=== PATIENT | male | born 1935 | race Caucasian/White ===

== ENCOUNTER 2022-03-28 19:45 | Inpatient (IN) ==
[2022-03-28] MEDS ORDERED: SODIUM CHLORIDE 0.9% 1,000 ML IV STA ×2 (21:04→23:11)
[2022-03-28 21:05] LABS: Basophils % 0.1 % (0.0-0.8); Hematocrit 41.5 VOL% (42.0-52.0); Hemoglobin 13.4 GM/DL (14.0-18.0); Immature Granulocytes % 0.3 %; Immature Granulocytes Absolute 0.05 #; Lymphocytes # 0.3 10*3/uL (1.4-4.0); Lymphocytes % 2.2 % (21.2-54.2); Mean Corpuscular HGB Conc 32.3 GM/DL (32-36); Mean Corpuscular Volume 94.7 FL (87-102); Mean Platelet Volume 10.1 FL (9.6-12.0); Monocytes # 1.1 10*3/uL (0.11-0.8); Monocytes % 7.3 % (1.7-12.7); Neutrophils % 90.1 % (38.7-73.9); Platelet Count 189 T/CUMM (130-400); Red Blood Count 4.38 MC/CUMM (3.8-5.5); Red Cell Distribution Width 14.6 % (9.3-17.3); White Blood Count 15.2 T/CUMM (4-12)
[2022-03-28 21:29] LABS: Alanine Aminotransferase 15 U/L (16-61); Albumin 3.3 G/DL (3.4-5.0); Alkaline Phosphatase 81 U/L (45-117); Aspartate Amino Transferase 33 U/L (0-37); Blood Urea Nitrogen 39 MG/DL (7-18); Carbon Dioxide 17 MMOL/L (21-32); Chloride 111 MMOL/L (98-107); Glucose 109 MG/DL (74-106); Osmolality,Calculated 288.4 MOS/KG (273-304); Potassium 5.1 MMOL/L (3.5-5.1); Sodium 140 MMOL/L (136-145); Total Protein 5.8 G/DL (6.4-8.2)
[2022-03-28 21:33] LABS: Band Neutrophils 7 % (0-10); Lymphocytes 6 % (20-55); Total Cells Counted 100
[2022-03-28 21:34] LABS: Platelet Estimate Adequate
[2022-03-28] MEDS ORDERED: LORazepam 2 MG/1 ML VIAL IV STA (21:38)
[2022-03-28] MEDS ORDERED: PIPERACILLIN/TAZOBACTAM 3,375 MG in SODIUM CHLORIDE 0.9% 100 ML IV STA (23:21)
[2022-03-29] MEDS ORDERED: flumazeniL 0.5 MG/5 ML VIAL IV ONE ×3 (00:21→01:00)
[2022-03-29] MEDS ORDERED: SODIUM BICARBONATE 50 MEQ/50 ML VIAL IV ONE (00:58)
[2022-03-29] MEDS ORDERED: SODIUM BICARBONATE 50 MEQ/50 ML VIAL IV STA (00:58)
[2022-03-29] MEDS ORDERED: LACTATED RINGERS 1,000 ML IV SCH (01:00)
[2022-03-29] MEDS ORDERED: NOREPINEPHRINE 4 MG/4 ML VIAL IV ONE (01:11)
[2022-03-29] MEDS ORDERED: NOREPINEPHRINE DRIP 8 MG/250 ML PREMIX IV PRN (01:12)
[2022-03-29] MEDS: NOREPINEPHRINE DRIP 8 MG/250 ML PREMIX IV PRN ×2 (01:29→10:23)
[2022-03-29] MEDS ORDERED: ALBUTEROL 2.5 MG/3 ML NEB RESP TX PRN (02:01)
[2022-03-29] MEDS ORDERED: ONDANSETRON 4 MG/2 ML VIAL IV PRN (02:01)
[2022-03-29] MEDS ORDERED: LACTATED RINGERS 1,000 ML IV ONE (02:41)
[2022-03-29] MEDS ORDERED: CEFEPIME 1,000 MG in SODIUM CHLORIDE 0.9% 100 ML IV SCH ×2 (03:00→16:00)
[2022-03-29] MEDS ORDERED: VANCOMYCIN INJ 1,000 MG in SODIUM CHLORIDE 0.9% 250 ML IV SCH (03:00)
[2022-03-29 03:20] VITALS: BP 91/55
[2022-03-29 04:04] LABS: Arterial Base Excess iSTAT -12 MMOL/L (-2.5-2.5); Arterial Bicarbonate iSTAT 14.7 MMOL/L (20-26); Arterial O2 Saturation iSTAT 72 % (95-100); Arterial PCO2 iSTAT 35 MM HG (35-48); Arterial PO2 iSTAT 44 MM HG (80-95); Arterial Total CO2 iSTAT 16 MMO/L (23-27); Arterial pH iSTAT 7.237 (7.35-7.45)
[2022-03-29 04:31] LABS: INR 5.4; Partial Thromboplastin Time 48.7 SECS (23.7-32.9)
[2022-03-29 04:34] LABS: ABG HCO3 13.7 MMOL/L (20-26); ABG PCO2 39.5 MM HG (35-48)
[2022-03-29 04:35] LABS: ABG PH 7.146 (7.35-7.45)
[2022-03-29] MEDS: metroNIDAZOLE INJ 500 MG/100 ML PREMIX IV SCH ×2 (04:40→11:20)
[2022-03-29 04:44] LABS: Arterial Base Excess iSTAT -12 MMOL/L (-2.5-2.5); Arterial Bicarbonate iSTAT 13.4 MMOL/L (20-26); Arterial O2 Saturation iSTAT 93 % (95-100); Arterial PCO2 iSTAT 29 MM HG (35-48); Arterial PO2 iSTAT 75 MM HG (80-95); Arterial Total CO2 iSTAT 14 MMO/L (23-27); Arterial pH iSTAT 7.269 (7.35-7.45)
[2022-03-29 04:48] LABS: Basophils % 0.4 % (0.0-0.8); Hematocrit 39.9 VOL% (42.0-52.0); Hemoglobin 12.5 GM/DL (14.0-18.0); Immature Granulocytes % 0.4 %; Immature Granulocytes Absolute 0.03 #; Lymphocytes # 0.6 10*3/uL (1.4-4.0); Lymphocytes % 6.7 % (21.2-54.2); Mean Corpuscular HGB Conc 31.3 GM/DL (32-36); Mean Corpuscular Volume 98.5 FL (87-102); Mean Platelet Volume 10.3 FL (9.6-12.0); Monocytes # 0.6 10*3/uL (0.11-0.8); Monocytes % 6.7 % (1.7-12.7); Neutrophils % 85.8 % (38.7-73.9); Platelet Count 176 T/CUMM (130-400); Red Blood Count 4.05 MC/CUMM (3.8-5.5); Red Cell Distribution Width 14.9 % (9.3-17.3); White Blood Count 8.6 T/CUMM (4-12)
[2022-03-29 05:21] LABS: Band Neutrophils 7 % (0-10); Burr Cells Few; Lymphocytes 6 % (20-55); Platelet Estimate Adequate; Total Cells Counted 100
[2022-03-29 05:26] LABS: PT Patient Result 56.4 SECS (10.1-12.1); Partial Thromboplastin Time 50.6 SECS (23.7-32.9)
[2022-03-29 05:28] LABS: Albumin 2.8 G/DL (3.4-5.0); Bilirubin,Total 0.8 MG/DL (0.20-1.00); Calcium 10.3 MG/DL (8.5-10.1); Potassium 5.2 MMOL/L (3.5-5.1); Total Protein 5.4 G/DL (6.4-8.2)
[2022-03-29 05:30] LABS: INR 5.8
[2022-03-29] MEDS ORDERED: ALBUTEROL/IPRATROPIUM 3 ML NEB RESP TX PRN (05:50)
[2022-03-29] MEDS ORDERED: PHYTONADIONE 10 MG/1 ML AMP SUBCUT ONE (07:47)
[2022-03-29 08:11] LABS: Arterial Base Excess iSTAT -15 MMOL/L (-2.5-2.5); Arterial Bicarbonate iSTAT 13.7 MMOL/L (20-26); Arterial O2 Saturation iSTAT 82 % (95-100); Arterial PCO2 iSTAT 40 MM HG (35-48); Arterial PO2 iSTAT 60 MM HG (80-95); Arterial Total CO2 iSTAT 15 MMO/L (23-27); Arterial pH iSTAT 7.146 (7.35-7.45)
[2022-03-29] MEDS ORDERED: PANTOPRAZOLE 40 MG VIAL IV SCH (09:00)
[2022-03-29] MEDS: SODIUM BICARB INJ 100 MEQ in DEXTROSE 5% 1,000 ML IV SCH ×2 (09:07→15:15)
[2022-03-29 09:27] LABS: Mucus,Urine Occasional /LPF (Occasional); RBC,Urine 480 /HPF (0-4); Sperm,Urine Moderate /HPF (Negative)
[2022-03-29 09:30] LABS: Bilirubin,Urine Negative (Negative); Blood, Urine Large mg/dL (Negative); Glucose,Urine (UA) Negative (Negative); Ketones,Urine Trace mg/dL (Negative); Nitrite,Urine Negative (Negative); Protein,Urine 100 mg/dL (Negative); Urine Appearance Cloudy (Clear); Urine Color Yellow (Yellow); Urine Urobilinogen 0.2 eU/dL (<2.0); Urine pH 5.5 (4.5-8.0)
[2022-03-29] MEDS ORDERED: HYDROCORTISONE 100 MG VIAL IV SCH (10:00)
[2022-03-29] MEDS ORDERED: SODIUM CHLORIDE 0.9% 1,000 ML IV PRN (11:44)
[2022-03-29] MEDS ORDERED: MIDAZOLAM 2 MG/2 ML VIAL ONE ×2 (11:47→12:33)
[2022-03-29] MEDS ORDERED: SUCCINYLCHOLINE 200 MG/10 ML VIAL ONE (11:47)
[2022-03-29] MEDS ORDERED: ETOMIDATE 40 MG/20 ML VIAL IV ONE (11:47)
[2022-03-29] MEDS ORDERED: LIDOCAINE 2% 5 ML VIAL ONE (11:47)
[2022-03-29] MEDS ORDERED: SEVOFLURANE 1 UNIT/15 MINUTE INH ONE (11:47)
[2022-03-29] MEDS ORDERED: fentaNYL 100 MCG/2 ML VIAL ONE (11:47)
[2022-03-29] MEDS ORDERED: EPINEPHrine 1 MG/10 ML SYRINGE ONE (12:10)
[2022-03-29 12:30] LABS: PT Patient Result 88.6 SECS (10.1-12.1)
[2022-03-29] MEDS ORDERED: PROTHROMBIN COMPLEX IV ONE (12:30)
[2022-03-29 12:34] LABS: INR 9.4
[2022-03-29] MEDS ORDERED: LORazepam 2 MG/1 ML VIAL IV PRN (13:21)
[2022-03-29] MEDS ORDERED: MORPHINE 2 MG/1 ML SYRINGE ONE (13:22)
[2022-03-29] MEDS: MORPHINE 2 MG/1 ML SYRINGE IV PRN ×2 (13:27→13:28)
[2022-03-29] MEDS ORDERED: MORPHINE 2 MG/1 ML SYRINGE IV ONE (13:28)
[2022-03-29] MEDS ORDERED: ZINC OXIDE 16% PASTE 57 GM TUBE TOP SCH (21:00)
== END 2022-03-29 14:53 | disposition expired | DRG 853 ==
LOC: EDSEX → N.ED 19:45 → N.EDINP 03-29 02:00 → N.CC 03-29 03:37
PROVIDERS: ADMIT Family Medicine; ATTEND Family Medicine